=== PATIENT | female | born 1965 | race Caucasian/White ===

== ENCOUNTER 2021-07-27 00:27 | Emergency (ER) | payer SELFPAY ==
[2021-07-27 00:27] VITALS: BP 154/60; PULSE 78; RESP 16; TEMP 36.6; O2SAT 98; BMI 29.7
--- NOTE | 2021-07-27 00:45 | CT_ITS ---
STUDY: CT ABDOMEN AND PELVIS WITH CONTRAST REASON FOR EXAM: Female, 55 years old. right flank pain RADIATION DOSAGE (If Supplied By Facility): CTDIvol = ( 13.41 ) mGy, DLP = ( 1035.65 ) mGycm TECHNIQUE: Transaxial images were obtained from the dome of the diaphragm to the symphysis pubis without oral contrast. IV 100mL Isovue-300 was administered. Sagittal and coronal images were reconstructed. Individualized dose optimization techniques were used for this CT. COMPARISON: Previous nonenhanced abdominal pelvic CT of 09/29/2015. FINDINGS: The visualized lung bases are unremarkable. No pericardial effusion. Normal liver. Contracted gallbladder. No calcified gallstones or findings of acute cholecystitis. No biliary ductal dilatation. Stable 11 mm rounded hypoattenuating focus within the inferior spleen and which could represent benign hemangioma or cyst. Normal pancreas. Normal bilateral adrenal glands. Right kidney is mildly edematous with a diminished nephrogram as compared to the left. Mild-moderate right hydronephrosis and mild hydroureter are present. A 2.5 mm rounded stone seen within the distal right ureter at the UVJ. Stable simple cyst at the midpole of the right kidney posteriorly, which requires no follow-up. 2 punctate nonobstructing stones are present within the right renal lower pole collecting system. Normal left kidney. Normal visualized stomach. Normal small intestine. Normal colon. The appendix is visualized and appears normal. Normal abdominal aorta. SMA and SKYE enhance normally. Normal inferior vena cava. Normal retroperitoneum. Partially distended urinary bladder is unremarkable. Normal abdominal wall. Stable benign cavernous hemangioma bone within the T12 vertebral body. No acute osseous abnormality. Normal size uterus and ovaries. No adnexal mass. CT/Abdomen/Pelvis W IV Cont ONLY IMPRESSION: Mild-moderate right hydronephrosis due to a 2.5 mm stone which lies within the distal ureter at the UVJ. Electronically Signed: Jimmy Sorensen MD at 1:54 EDT ,
[2021-07-27 00:56] LABS: Color, Urine Yellow (Yellow); Glucose, Dipstick Normal (Normal); Ketone-Dipstick 5 mg/dl (Negative); Leukocyte Esterase-Dipstick 25 /ul (Negative); Nitrite-Dipstick Negative (Negative); Occult Blood-Urine 250 /ul (Negative); Protein-Dipstick 30 mg/dl (Negative); Urine Bilirubin Dipstick 1 mg/dL (Negative); Urine Clarity Clear (Clear); Urine Urobilinogen 1 mg/dl (Normal)
[2021-07-27] MEDS: Ketorolac 30 MG/ML Syringe IV (00:57)
[2021-07-27] MEDS: 0.9% Normal Saline 1,000 ML 999 ML IV (00:57)
[2021-07-27] MEDS: Ondansetron 4 MG/2 ML Vial IV (00:58)
[2021-07-27 00:59] LABS: Absolute Lymphocyte Count 1.85 X10^3/uL (0.83-4.51); Absolute Neutrophil Count 10.6 X10^3/uL (2.0-7.7); Basophil# 0.06 X10^3/uL; Basophil% 0.5 % (0-1); Eosinophil# 0.22 X10^3/uL; Eosinophils% 1.7 % (0-5); Hematocrit 42.5 % (37-47); Hemoglobin 13.8 g/dL (12.0-15.0); Lymphocyte # 1.85 X10^3/ul (0.83-4.51); Lymphocyte % 13.9 % (19-41); Mean Corp Hgb Conc 32.5 g/dL (32-36); Mean Corpuscular Hgb 29.2 pg (27.0-32.0); Mean Corpuscular Volume 89.9 fL (81-99); Mean Platelet Vol. 11.1 fl (6.2-12.0); Monocyte# 0.52 X10^3/uL; Monocyte% 3.9 % (0-10); NRBC Flagged by Analyzer 0 % (0-5); Neutrophil # 10.62 X10^3/uL (2.7-7.7); Neutrophil % 79.7 % (47-70); Platelet Count 308 K/mm3 (150-450); RBC Distribution Width CV 12.7 % (11.6-14.6); Red Blood Count 4.73 M/mm3 (4.2-5.4); White Blood Count 13.3 K/mm3 (4.4-11.0)
[2021-07-27 01:02] LABS: Bacteria 1+ /hpf (None Seen); Calcium Oxalate Crystals Ur RARE /hpf (<or=2+); Mucous, Urine 1+ /hpf (<or=2+); Red Blood Cells-Urine 25-50 SEEN /hpf (0-5); Squamous Epithelial Cells - UA 0-5 SEEN /hpf (5-10); White Blood Cells 0-5 SEEN /hpf (0-5)
[2021-07-27 01:09] LABS: Anion Gap 5 (5-15); BUN 18 mg/dL (7-18); BUN/Creat Ratio 18.1 RATIO (10-20); Calcium,Total 9.7 mg/dL (8.5-10.1); Chloride 111 mmol/L (98-107); Creatinine, Serum 0.99 mg/dL (0.55-1.02); EST Glomerular Filtration Rate 61 mL/min (>60); Est Glom Filt Rate - Afr Amer 74 mL/min (>60); Glucose 118 mg/dL (74-106); Potassium 3.6 mmol/L (3.5-5.1); Sodium Level 143 mmol/L (136-145)
--- NOTE | 2021-07-27 01:24 | EX.ED.DYSGE1 ---
HPI History of Present Illness Chief Complaint: Flank Pain Narrative Narrative: Patient is a 55-year-old female who states about 3 hours prior to arrival she noticed sudden onset pain in her right abdomen/flank. She states there was no trauma or excessive activity prior to the pain beginning. She states that the pain is present whether she is sitting lying or moving and that motion does not seem to exacerbate the pain. She reports nausea without vomiting after the pain began. She states she cannot get the pain under control at home and it is not resolved on its own and secondary to this comes in for evaluation [facility] Medical History no medical history Home Medications cephalexin 500 mg PO TID 7 Days #21 cap 07/27/21 [Rx Last Taken Unknown] ketorolac 10 mg PO 4X/DAY PRN PRN 5 Days #20 tab 07/27/21 [Rx Last Taken Unknown] ondansetron 4 mg PO TID PRN PRN #21 tab 07/27/21 [Rx Last Taken Unknown] Allergy/AdvReac Type Severity Reaction Status Date / Time No Known Allergies Allergy Verified 07/27/21 00:30 Social History Smoking Status: Never smoker ROS ROS ED Constitutional Constitutional ED: Denies chills or fever(s) ENT ENT ED: Denies sore throat Cardiovascular Cardiovascular: Denies chest pain Respiratory/Chest Respiratory/Chest: Denies cough or dyspnea Gastrointestinal Gastrointestinal: Reports abdominal pain and nausea; Denies diarrhea or vomiting Genitourinary Genitourinary ED: Denies dysuria or hematuria Musculoskeletal Musculoskeletal: Reports back pain; Denies myalgias Integumentary Denies rash Neurologic Neurologic: Denies headache(s) Hematologic/Lymphatic Hematologic/Lymphatic: Denies easy bleeding or easy bruising EXAM Physical Exam Const Vital Signs: 07/27/21 00:27 Temperature 97.9 F Temperature Source Temporal Pulse Rate 78 Respiratory Rate 16 Blood Pressure 154/60 H Blood Pressure Mean 91 Pulse Ox 98 Oxygen Delivery Method Room Air Positive well nourished and well developed General Appearance ED: well developed HEENT Reports moist mucous membranes Eyes PERRL and EOMs intact bilaterally Neck supple Resp normal respiratory effort and clear to auscultation bilaterally Cardio regular rate and regular rhythm Rate: other Other Details: Radial pulses are +2-4 bilaterally are equal and symmetric GI normal to inspection, nondistended, normoactive bowel sounds, non-tender, non-distended and no masses GI Narrative: No voluntary guarding or rigidity no pulsatile mass Auscultation: normoactive bowel sounds Palpation: soft Back/Spine Back/Spine Narrative: Positive right CVA pain Extremity normal to inspection Neuro oriented x3 and CN's II-XII intact bilaterally Sensorium / Orientation: alert Motor Exam: strength 5/5 throughout Psych mental status grossly normal Skin no rashes or lesions noted Skin Narrative: No overlying soft tissue changes to suggest trauma or infection MDM MDM MDM Narrative Medical decision making narrative: Patient presented to the ER afebrile with spontaneous flank pain and no report or signs of trauma. Clinically she was presenting as a kidney stone so basic blood work and a noncontrast CAT scan were obtained. Patient has mild leukocytosis without left shift and urine does show trace bacteria. The patient CT scan confirms a 2.5 mm stone in the right distal UVJ. At this time she does not have acute kidney injury secondary to this or signs of urosepsis. Therefore patient can be discharged home as her pain has been improved with Toradol and be placed on antibiotics for the bacteria within the urine. She will follow up with urology for repeat evaluation and possible stent placement if she does not spontaneously passed the stone on her own Lab Data Attestation: I reviewed the patient's lab results. Labs: Laboratory Results - last 24 hr 07/27/21 07/27/21 07/27/21 00:45 00:45 00:45 WBC 13.3 H RBC 4.73 Hgb 13.8 Hct 42.5 MCV 89.9 MCH 29.2 MCHC 32.5 RDW Std Deviation 42.0 RDW Coeff of Johan 12.7 Plt Count 308 MPV 11.1 Immature Gran % (Auto) 0.300 Neut % (Auto) 79.7 H Lymph % (Auto) 13.9 L [place] % (Auto) 3.9 Eos % (Auto) 1.7 Baso % (Auto) 0.5 Absolute Neuts (auto) 10.6 H Absolute Lymphs (auto) 1.85 Nucleated RBC % 0 Sodium 143 Potassium 3.6 Chloride 111 H Carbon Dioxide 27.0 Anion Gap 5 BUN 18 Creatinine 0.99 Estim Creat Clear Calc 61.70 Est GFR (MDRD) Af Amer 74 Est GFR (MDRD) Non-Af 61 BUN/Creatinine Ratio 18.1 Glucose 118 H Calcium 9.7 Urine Color Yellow Urine Clarity Clear Urine pH 5.0 Ur Specific [place] 1.030 Urine Protein 30 H Urine Glucose (UA) Normal Urine Ketones 5 H Urine Occult Blood 250 H Urine Nitrite Negative Urine Bilirubin 1 H Urine Urobilinogen 1 H Ur Leukocyte Esterase 25 H Urine RBC 25-50 SEEN Urine WBC 0-5 SEEN Ur Squamous Epith Cells 0-5 SEEN Calcium Oxalate Crystal RARE Urine Bacteria 1+ Urine Mucus 1+ Radiography Diagnostic Testing: Clinical Impression(s) from Imaging Studies Abdomen/Pelvis CT 07/27/21 00:45 IMPRESSION: Mild-moderate right hydronephrosis due to a 2.5 mm stone which lies within the distal ureter at the UVJ. Electronically Signed: Jimmy Sorensen MD at 1:54 EDT , Discharge Plan Triage Chief Complaint: Flank Pain ED Provider: Amadou Banks Dx/Rx/DC Orders Clinical Impression: Kidney stone, Renal colic Instructions: ED Kidney Stone w/ Colic Prescriptions: New ketorolac 10 mg tablet 10 mg PO 4X/DAY PRN PRN (Reason: pain) 5 Days Qty: 20 RF: 0 cephalexin 500 mg capsule 500 mg PO TID 7 Days Qty: 21 RF: 0 ondansetron 4 mg tablet,disintegrating 4 mg PO TID PRN PRN (Reason: nausea and vomiting) Qty: 21 RF: 0 Primary Care Provider: Care Physician,No Primary Referrals: Onesimo Ogden MD [STAFF PHYSICIAN] - 3-5 Days if not improving Care Physician,No Primary [Primary Care Provider] - Activity Restrictions/Additional Instructions: Please follow-up with urology to discuss need for stent placement if you do not pass the stone on your own. Please return to the ER if you have intractable pain or you develop a fever over 100.4 Disposition Disposition: Home, Self Care
[2021-07-27] MEDS: Cephalexin 250 MG Capsule 500 MG PO (02:33)
[2021-07-27 02:35] VITALS: RESP 18
== END 2021-07-27 02:35 | disposition home or self-care (01) ==
PROVIDERS: Emergency Provider Emergency Medicine; Visit Provider Emergency Medicine
DX: N13.2 Hydronephrosis with renal and ureteral calculous obstruction (principal)
CPT/HCPCS: 74177; 80048; 81001; 85025; 87086; 87088; 96361; 96374; 96375; 99285; J7030; Q9967; A4216; J2405

== ENCOUNTER 2022-12-12 00:14 | Emergency (ER) | payer SELFPAY ==
[2022-12-12 00:15] VITALS: BP 162/105; PULSE 98; RESP 22; TEMP 36.9; O2SAT 91; BMI 32.3
--- NOTE | 2022-12-12 00:18 | EKG12_ITS ---
Test Reason : CP Blood Pressure : / mmHG Vent. Rate : 102 BPM Atrial Rate : 102 BPM P-R Int : 168 ms QRS Dur : 068 ms QT Int : 348 ms P-R-T Axes : 030 000 015 degrees QTc Int : 453 ms Sinus tachycardia Minimal voltage criteria for LVH, may be normal variant ( R in aVL ) Borderline ECG Confirmed by CINDY GANT ([id number]), associate entertainment editor AZIZA REYES ([id number]) on 12/14/2022 8:25:26 AM Referred By: Confirmed By:CINDY GANT
--- NOTE | 2022-12-12 00:31 | RAD_ITS ---
INDICATION: chest pain EXAMINATION/TECHNIQUE: X-RAY - XR Chest 1 View COMPARISON: Sep 29 2015 FINDINGS: LINES/DEVICES: None. LUNGS: No consolidation, edema or effusion. No pneumothorax. MEDIASTINUM AND CARDIOVASCULAR STRUCTURES: Cardiac silhouette not enlarged. Central airways and mediastinal contour are unremarkable. BONES AND SOFT TISSUES: Unremarkable. RAD/Chest 1 View (Portable) IMPRESSION: No radiographic evidence of acute cardiopulmonary disease. Electronically Signed: Paige Macias MD at 0:56 EDT ,
[2022-12-12] MEDS: Aspirin 81 MG TAB.CHEW 324 MG PO (00:34)
[2022-12-12 00:37] LABS: Absolute Lymphocyte Count 2.57 X10^3/uL (0.83-4.51); Absolute Neutrophil Count 7.9 X10^3/uL (2.0-7.7); Basophil# 0.07 X10^3/uL; Basophil% 0.6 % (0-1); Eosinophil# 0.24 X10^3/uL; Hematocrit 40.5 % (37-47); Hemoglobin 12.7 g/dL (12.0-15.0); Lymphocyte # 2.57 X10^3/ul (0.83-4.51); Lymphocyte % 21.4 % (19-41); Mean Corp Hgb Conc 31.4 g/dL (32-36); Mean Corpuscular Hgb 29.4 pg (27.0-32.0); Mean Corpuscular Volume 93.8 fL (81-99); Monocyte# 0.99 X10^3/uL; Monocyte% 8.3 % (0-10); NRBC Flagged by Analyzer 0 % (0-5); Neutrophil # 7.92 X10^3/uL (2.7-7.7); Neutrophil % 65.9 % (47-70); Platelet Count 279 K/mm3 (150-450); RBC Distribution Width CV 13.1 % (11.6-14.6); RBC Distribution Width SD 44.8 fl (35.1-43.9); Red Blood Count 4.32 M/mm3 (4.2-5.4)
[2022-12-12 00:46] VITALS: BP 84/61; PULSE 85; RESP 16; O2SAT 94
[2022-12-12 00:51] LABS: Anion Gap 3 (5-15); BUN 18 mg/dL (7-18); BUN/Creat Ratio 19.7 RATIO (10-20); Calcium,Total 9.2 mg/dL (8.5-10.1); Chloride 107 mmol/L (98-107); Creatinine, Serum 0.92 mg/dL (0.55-1.02); EST Glomerular Filtration Rate 67 mL/min (>60); Est Glom Filt Rate - Afr Amer 81 mL/min (>60); Glucose 96 mg/dL (74-106); Potassium 3.4 mmol/L (3.5-5.1); Sodium Level 139 mmol/L (136-145); Troponin-I HS (w/2H Reflex) 4 pg/mL (3.0-54.0)
[2022-12-12] MEDS: Ondansetron 4 MG/2 ML Vial IV (01:12)
[2022-12-12] MEDS: 0.9% Normal Saline 1,000 ML 999 ML IV (01:12)
[2022-12-12] MEDS: fentaNYL 100 MCG/2 ML Ampul 25 MCG IV (01:12)
--- NOTE | 2022-12-12 01:18 | EDS_ITS ---
HPI History of Present Illness Chief Complaint: Chest Pain Narrative Narrative: 57-year-old female with left-sided chest pain which radiates into the left axilla. She describes as sharp. Is worse with the symptoms duration. He feels like he is short of breath. Is been constant for about 24 hours but waxes and wanes in severity. Patient states he was at the [employer] and since the pain was worse she decided to come to the ER to be checked out. No history of cardiac disease. 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 This was many years ago. She states was previously anticoagulated but no longer. Patient states she does have recent history of car ride to [place] without frequent stops. She does note that she has some left calf pain however she believes this is due to a tick bite. She never developed a tick rash of any sort. No fevers or chills. No body aches. Patient states she has no specific past medical history other than GERD and previous DVT PFSH PFSH Home Medications apixaban 5 mg tablet (Eliquis) 5 mg PO BID #74 tabs 12/12/22 [Rx Last Taken Unknown] omeprazole 20 mg capsule,delayed release 20 mg PO DAILY 12/12/22 [History Last Taken Unknown] oxycodone-acetaminophen 5 mg-325 mg tablet (Percocet) 1 tab PO Q6H PRN pain 3 days #12 tabs 12/12/22 [Rx Last Taken Unknown] Allergy/AdvReac Type Severity Reaction Status Date / Time No Known Allergies Allergy Verified 12/12/22 00:17 Surgical History Hx of tonsillectomy S/P thyroid surgery Social History Smoking Status: Never smoker ROS ROS ED Constitutional Constitutional ED: Denies chills, fever(s) or sweats Eyes Eyes: Denies blurry vision or change in vision ENT ENT ED: Denies ear pain or sore throat Cardiovascular Cardiovascular: Reports chest pain; Denies palpitations or racing heartbeat Respiratory/Chest Respiratory/Chest: Reports cough and dyspnea; Denies sputum Gastrointestinal Gastrointestinal: Denies abdominal pain, constipation, diarrhea, nausea or vomiting Genitourinary Genitourinary ED: Denies dysuria, hematuria or urinary frequency Musculoskeletal Musculoskeletal: Denies arthralgias, myalgias or neck pain Integumentary Denies abscess, Abrasions or rash Neurologic Neurologic: Denies headache(s), paresthesias or weakness Psychiatric Psychiatric: Denies anxiety, depression, suicidal ideation or suicidal thoughts Endocrine Endocrinology: Denies polydipsia or polyuria EXAM Physical Exam Const Vital Signs: 12/12/22 00:15 12/12/22 00:21 12/12/22 00:46 Temperature 98.5 F Temperature Source Oral Pulse Rate 98 85 Respiratory Rate 22 H 16 Blood Pressure 162/105 H 84/61 L Blood Pressure Mean 124 68 Pulse Ox 91 94 Oxygen Delivery Method Room Air Room Air Nasal Cannula Oxygen Flow Rate (L/min) 2 12/12/22 02:50 12/12/22 02:50 12/12/22 03:14 Temperature Temperature Source Pulse Rate 107 H 103 H Respiratory Rate 20 H 23 H Blood Pressure 137/85 H 137/85 H 135/84 H Blood Pressure Mean 102 102 101 Pulse Ox 92 91 Oxygen Delivery Method Room Air Room Air Oxygen Flow Rate (L/min) Positive well nourished General Appearance ED: NAD; Negative for pallor HEENT Reports moist mucous membranes normocephalic and atraumatic Eyes PERRL and EOMs intact bilaterally Chest Wall inspection of chest normal Resp clear to auscultation bilaterally Resp Narrative: Tachypneic Auscultation: Negative for rales, rhonchi or wheezes Cardio regular rate GI normal to inspection, nondistended, normoactive bowel sounds Extremity Extremity Narrative: Tenderness to palpation left posterior calf. No cords palpated. No erythema or edema noted. Compartments are soft Neuro oriented x3 and CN's II-XII intact bilaterally Sensorium / Orientation: awake and alert Psych mental status grossly normal Mood & Affect: anxious Skin no rashes or lesions noted General Skin Exam: Negative for jaundice or pallor Heart Score History: Slightly/Non-Suspicious ECG: Normal Age: >45 - <65 years Risk Factors: No Risk Factors Troponin: </= Normal Limit Score: 1 MDM MDM MDM Narrative Medical decision making narrative: Patient presenting with left-sided chest pain. Sharp in nature and worse with deep inspiration. Differential includes acute coronary syndrome, pneumonia, CHF, pneumothorax, PE, costochondritis. CBC will be obtained to assess white blood cell count, hemoglobin, platelets, differential. BMP to assess renal function, electrolytes, glucose, anion gap. High-sensitivity troponin and EKG to further assess for ischemia and arrhythmia. Chest x-ray to rule out pneumonia, pneumothorax. Patient given fentanyl 25 mg IV with Zofran as she initially had a blood pressure of 84/61 however this is normalized to 140s over 80s when I am in the room examining her. It is unclear the relevance of this isolated low blood pressure. CBC indicates a leukocytosis of 12. No significant left shift. Hemoglobin chronic are stable. Platelets are normal. Renal function and electrolytes within normal limits with exception of potassium 3.4. High-sensitivity troponin 4. EKG on my interpretation shows a sinus tachycardia with a ventricular rate of 102 bpm without sign of ischemic change. Chest x-ray my interpretation shows no acute process. Radiologist interprets this and agrees. D-dimer came back elevated at 2.30. CTA of the chest notes multiple segmental and subsegmental in the bilateral lower lobes there is also a small left pleural effusion. There is no evidence of heart strain. Patient was ambulated on room air and maintain sats of 91 to 92%. She was not having difficulty breathing. At this point since her work-up is ultimately negative and her delta troponin came back at 5. I think she can be safely discharged home. We discussed the use of Eliquis for PE. Patient states she does not have a primary care provider and has not seen one in some time. She states that she has [employer] insurance that only pays for his major issues and does not even pay for medications. I counseled her to at least try to go through this insurance company to see what her next steps are. 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 She was started on Eliquis with the first dose in the ER. She has a history of DVT and was on Coumadin previously so she has risk factors of being on anticoagulant. We discussed them again. Patient specifically asked if she can take Aleve or ibuprofen and I told her she could not not on a blood thinner. I counseled her for headache she can take Tylenol. Patient had no further questions. I did give her follow-up with Dr. Jefferson who is on-call for no doc and Dr. Fiore from vascular surgery. Impression: 1. Chest pain 2. Bilateral pulmonary emboli 3. small left pleural effusion Lab Data Attestation: I reviewed the patient's lab results. Labs: Laboratory Results - last 24 hr 12/12/22 12/12/22 00:26 02:52 WBC 12.0 H RBC 4.32 Hgb 12.7 Hct 40.5 MCV 93.8 MCH 29.4 MCHC 31.4 L RDW Std Deviation 44.8 H RDW Coeff of Johan 13.1 Plt Count 279 MPV 11.0 Immature Gran % (Auto) 1.800 H Neut % (Auto) 65.9 Lymph % (Auto) 21.4 [place] % (Auto) 8.3 Eos % (Auto) 2.0 Baso % (Auto) 0.6 Absolute Neuts (auto) 7.9 H Absolute Lymphs (auto) 2.57 Nucleated RBC % 0 D-Dimer Quant (PE/DVT) 2.30 H* Sodium 139 Potassium 3.4 L Chloride 107 Carbon Dioxide 29.0 Anion Gap 3 L BUN 18 Creatinine 0.92 Estim Creat Clear Calc 62.40 Est GFR (MDRD) Af Amer 81 Est GFR (MDRD) Non-Af 67 BUN/Creatinine Ratio 19.7 Glucose 96 Calcium 9.2 Troponin I High Sens 4 5 Radiography Diagnostic Testing: Clinical Impression(s) from Imaging Studies Chest X-Ray 12/12/22 00:31 IMPRESSION: No radiographic evidence of acute cardiopulmonary disease. Electronically Signed: Paige Macias MD at 0:56 EDT , Chest CTA 12/12/22 01:35 IMPRESSION: Multiple small segmental and subsegmental pulmonary emboli in the right lower lobe and left lower lobe. There is small left pleural effusion. There is no evidence of right heart strain Electronically Signed: Paige Macias MD at 2:58 EDT , Discharge Plan Triage Chief Complaint: Chest Pain ED Provider: Angel Appiah Dx/Rx/DC Orders Instructions: DVT/PE Discharge instruction sheet, ED Chest Pain, Noncardiac Prescriptions: New oxycodone-acetaminophen [Percocet] 5-325 mg tablet 1 tab PO Q6H PRN (Reason: pain) 3 Days Qty: 12 0RF Eliquis 5 mg tablet 5 mg PO BID Qty: 74 0RF Rx Instructions: 10 mg twice a day for the first week. Then 5 mg twice a day. No Action omeprazole 20 mg capsule,delayed release(DR/EC) 20 mg PO DAILY Primary Care Provider: Care Physician,No Primary Referrals: Stefan Fiore MD [Med Staff - Active Staff] - 3-5 Days Lucita Jefferson DO [Med Staff - Active Staff] - 3-5 Days Care Physician,No Primary [Primary Care Provider] - Disposition Disposition: Home, Self Care
--- NOTE | 2022-12-12 01:35 | CT_ITS ---
We are attempting to reach an attending provider to discuss findings. An addendum with communication details will be sent when the communication is complete. STUDY: CTA CHEST REASON FOR EXAM: Female, 57 years old. chest pain RADIATION DOSAGE (If Supplied By Facility): CTDIvol = ( 12.72 ) mGy, DLP = ( 440.11 ) mGycm TECHNIQUE: The examination was performed with the intravenous administration of IV 100mL Isovue-370. Post-processing of the angiographic images was performed, with multiplanar reformation and 3D reconstruction. Individualized dose optimization techniques were used for this CT. COMPARISON: FINDINGS: Multiple small segmental and subsegmental pulmonary emboli in the right lower lobe and left lower lobe. Normal thoracic aorta and visualized great vessels. There is no demonstrated aortic dissection. Normal heart and pericardium. Normal mediastinum. Normal hilar regions. Normal visualized trachea and bronchi. Small left pleural effusion. Subsegmental atelectasis in the lung bases. Normal chest wall structures. Normal osseous structures. Normal visualized upper abdomen. CT/CTA Chest W/WO Contrast IMPRESSION: Multiple small segmental and subsegmental pulmonary emboli in the right lower lobe and left lower lobe. There is small left pleural effusion. There is no evidence of right heart strain Electronically Signed: Paige Macias MD at 2:58 EDT ,
[2022-12-12 02:31] LABS: Reflex Troponin-HS? (from REC) Y
[2022-12-12 02:50] VITALS: BP 137/85; PULSE 107; RESP 20; O2SAT 92
[2022-12-12 03:02] VITALS: O2SAT 92
[2022-12-12 03:14] VITALS: BP 135/84; PULSE 103; RESP 23; O2SAT 91
[2022-12-12 03:27] LABS: Troponin-I HS 5 pg/mL (3.0-54.0)
[2022-12-12] MEDS: APIXABAN 5 MG TABLET 10 MG PO (03:38)
[2022-12-12 03:46] VITALS: BP 139/82; PULSE 82; RESP 18; O2SAT 93
== END 2022-12-12 04:05 | disposition home or self-care (01) ==
PROVIDERS: Emergency Provider Student in an Organized Health Care Education/Training Program; Visit Provider Student in an Organized Health Care Education/Training Program
DX: I26.99 Other pulmonary embolism without acute cor pulmonale (principal); Z86.718 Personal history of other venous thrombosis and embolism; Z79.01 Long term (current) use of anticoagulants
CPT/HCPCS: 71045; 71275; 80048; 84484; 85025; 85379; 93005; 96361; 96374; 96375; 99285; J7030; Q9967; A4216; J2405